=== PATIENT | male | born 1985 | race Asian ===

== ENCOUNTER 2021-08-25 14:47 | Emergency (ER) | payer BC ==
[~2021-08-25] VITALS: Ht 170.2 cm; Wt 63.5 kg
[2021-08-25 14:50] VITALS: BP 139/91
--- NOTE | 2021-08-25 16:30 | NUR ---
R 5TH DIGIT SPLINT DONE BY [employer].
--- NOTE | 2021-08-25 16:38 | NUR ---
Patient discharged to home in stable condition. Written and verbal after care instructions given. Patient verbalizes understanding of instruction.
== END 2021-08-25 16:39 | disposition home or self-care (01) ==
LOC: ER 14:51
DX: M20.011 Mallet finger of right finger(s) (principal); Z88.2 Allergy status to sulfonamides; Z88.1 Allergy status to other antibiotic agents
CPT/HCPCS: 73130-TC